=== PATIENT | male | born 1985 | race Two or more races ===

== ENCOUNTER 2018-12-17 02:56 | Emergency (ER) | payer SELFPAY ==
[~2018-12-17] VITALS: Ht 180.3 cm; Wt 70.3 kg
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
[2018-12-17 04:29] VITALS: BP 128/75
--- NOTE | 2018-12-17 04:29 | NUR ---
Patient discharged to home in stable condition. Written and verbal after care instructions given. Patient verbalizes understanding of instruction.Pt ambulatory with a steady gait however w/ a limp.
[2018-12-18] MEDS ORDERED: TDAP [DIPH/PERTUSSIS/TET] 0.5 ML VIAL IM ONE (09:21)
== END 2018-12-17 04:30 | disposition home or self-care (01) ==
LOC: ER 02:56
DX: S63.696A Other sprain of right little finger, initial encounter (principal); F17.200 Nicotine dependence, unspecified, uncomplicated; Y04.0XXA Assault by unarmed brawl or fight, initial encounter; Y93.89 Activity, other specified; Y92.89 Other specified places as the place of occurrence of the external cause; Y99.8 Other external cause status
CPT/HCPCS: 73140-TC; 90715